=== PATIENT | female | born 1945 | race Caucasian/White ===

== ENCOUNTER → 2020-11-02 | Day surgery (SDC) | payer MEDICARE ==
[~2020-11-02] MED LIST: Fentanyl 100 MCG/2 ML VIAL ONE
[2020-11-02 10:44] LABS: SARS-CoV-2 NAA Rapid Test Not Detected (NotDetected)
== END ==
LOC: SDC 08:39
PROVIDERS: ATTEND Physical Medicine & Rehabilitation
DX: Z01.812 Encounter for preprocedural laboratory examination (principal); S06.5X9A Traumatic subdural hemorrhage with loss of consciousness of unspecified duration, initial encounter; Z20.822 Contact with and (suspected) exposure to COVID-19
CPT/HCPCS: J3010; U0002